=== PATIENT | male | born 1965 | race Two or more races ===

== ENCOUNTER 2024-03-08 17:16 | Emergency (ER) | payer SELFPAY ==
[~2024-03-08] VITALS: Ht 177.8 cm; Wt 100.0 kg
[2024-03-08 20:46] VITALS: BP 160/88; TEMP 98; O2SAT 98
== END 2024-03-08 20:47 | disposition home or self-care (01) ==
LOC: M ED 17:16
DX: T65.94XA Toxic effect of unspecified substance, undetermined, initial encounter (principal); E11.9 Type 2 diabetes mellitus without complications; Z59.00 Homelessness unspecified